=== PATIENT | female | born 1985 | race Caucasian/White ===

== ENCOUNTER 2019-01-11 08:19 | Inpatient (IN) | payer MEDICAID ==
[~2019-01-11] VITALS: Ht 165.1 cm; Wt 72.6 kg
[2019-01-11] VITALS (16 sets, daily range): BP systolic 104–133; BP diastolic 6–76
--- NOTE | 2019-01-11 08:25 | NUR ---
Arrived to unit in wheelchair accompanied by family. Pt c/o "water breaking and contractions. wt obtained and pt then ambulates to room 318. Gowned and to bed. Oriented to room, call light and surroundings. plan of care reviewed with pt and family at bedside.
[2019-01-11] MEDS ORDERED: PREN-37 PO (08:40)
--- NOTE | 2019-01-11 08:49 | NUR ---
Dr Nelson called and notified of pt arrival, srom at home this am, +nitrazine, contractions and sve. New orders for admission received.
[2019-01-11] MEDS ORDERED: D5 LR IV SOLUTION 1,000 ML IV SCH (08:51)
[2019-01-11] MEDS ORDERED: MINERAL OIL CONCENTRATE 99.9% 15 ML UDC TOP PRN (09:00)
[2019-01-11 09:26] LABS: BASOPHILS % (AUTO) 0 % (0-10); EOSINOPHILS # (AUTO) 0.1 10^3/uL (0.0-0.3); EOSINOPHILS % (AUTO) 1 % (0-10); HEMATOCRIT 32 % (35-52); LYMPHOCYTES # (AUTO) 1.5 X 10^3 (1.0-4.0); LYMPHOCYTES % (AUTO) 16 % (12-44); MEAN CORPUSCULAR HEMOGLOBIN 26 PG (25-34); MEAN CORPUSCULAR HGB CONC 32 G/DL (32-36); MEAN CORPUSCULAR VOLUME 81 FL (80-99); MEAN PLATELET VOLUME 11.1 FL (7.4-10.4); MONOCYTES # (AUTO) 0.7 X 10^3 (0.0-1.0); MONOCYTES % (AUTO) 8 % (0-12); NEUTROPHILS # (AUTO) 6.9 X 10^3 (1.8-7.8); NEUTROPHILS % (AUTO) 75 % (42-75); PLATELET COUNT 277 10^3/uL (130-400); RED CELL DISTRIBUTION WIDTH 14.3 % (10.0-14.5); WHITE BLOOD COUNT 9.2 10^3/uL (4.3-11.0)
--- NOTE | 2019-01-11 09:45 | NUR ---
Report to Gerard Valdez RN
--- NOTE | 2019-01-11 09:49 | NUR ---
called into pt's room, requesting pain medication. was called. update given on SVE. Fentanyl order received.
[2019-01-11] MEDS ORDERED: fentaNYL INJECTION 100 MCG/2 ML AMP ONE ×2 (09:53→10:23)
[2019-01-11] MEDS ORDERED: fentaNYL INJECTION 100 MCG/2 ML AMP IVP ONE (10:00)
[2019-01-11] MEDS ORDERED: OXYTOCIN/NORMAL SALINE 500 ML IV ONE (10:09)
[2019-01-11] MEDS ORDERED: SUFENTA 0.6MCG/ML BUPIVA 0.125 0 ML ONE (10:09)
--- NOTE | 2019-01-11 10:26 | NUR ---
+emesis noted. pt moaning with ctx's.
--- NOTE | 2019-01-11 11:16 | History & Physical-OB ---
OB - Chief Complaint & HPI Date/Time Date of Admission: Date of Admission: Jan 11, 2019 at 08:50 Date seen by a Provider: Jan 11, 2019 Time Seen by a Provider: 10:50 Chief Complaint/History OB-Reason for Admission/Chief: Rupture of Membranes Hx : 6 Hx Para: 5 Gestational Age in Weeks: 38 Gestational Age in Days: 3 Admission Nurse Assessment Rev: Yes Allergies and Home Medications Allergies Coded Allergies: No Known Drug Allergies (Unverified , 01/11/19) Home Medications Vit/Iron Fumarate/FA 1 Each Tablet, 1 EACH PO DAILY, (Reported) Patient Home Medication List Home Medication List Reviewed: Yes OB - History Hx of Present Care: Yes Ultrasounds: Normal mid trimester US Obstetrical Complications: None Medical Complications: None Patient Past Medical History healthy Social History/Family History Recent Infectious Disease Expo: No OB - Admission Exam Physical Exam HEENT: NCAT Heart: Rhythm Normal Lungs: Clear Abdomen: Gravid Extremities: Normal Reflexes: Normal Cervical Dilatation: 9cm Effacement: 100% Station: 0 Membranes: Ruptured Amniotic Fluid: Clear Heart Rate: 130's Accelerations: Accelerations Present Decelerations: No Decelerations Short Term Variability: Present Color Matcher Variability: Average (6-25) Contractions on Admission: < 5 Minutes Apart Labs Laboratory Tests Test 01/11/19 09:05 Range/Units White Blood Count 9.2 4.3-11.0 10^3/uL Red Blood Count 3.89 L 4.35-5.85 10^6/uL Hemoglobin 10.0 L 11.5-16.0 G/DL Hematocrit 32 L 35-52 % Mean Corpuscular Volume 81 80-99 FL Mean Corpuscular Hemoglobin 26 25-34 PG Mean Corpuscular Hemoglobin Concent 32 32-36 G/DL Red Cell Distribution Width 14.3 10.0-14.5 % Platelet Count 277 130-400 10^3/uL Mean Platelet Volume 11.1 H 7.4-10.4 FL Neutrophils (%) (Auto) 75 42-75 % Lymphocytes (%) (Auto) 16 12-44 % Monocytes (%) (Auto) 8 0-12 % Eosinophils (%) (Auto) 1 0-10 % Basophils (%) (Auto) 0 0-10 % Neutrophils # (Auto) 6.9 1.8-7.8 X 10^3 Lymphocytes # (Auto) 1.5 1.0-4.0 X 10^3 Monocytes # (Auto) 0.7 0.0-1.0 X 10^3 Eosinophils # (Auto) 0.1 0.0-0.3 10^3/uL Basophils # (Auto) 0.0 0.0-0.1 10^3/uL OB - Assessment/Plan/Diagnosis Assessment Assessment: active labor Admission Dx Normal labor Admission Status: Inpatient Order (span 2 midnights) Reason for Inpatient Admission: Labor at 38 3/7 wga Plan Plan: Expectant Management CIRILO JOHNSON MD Jan 11, 2019 11:16
--- NOTE | 2019-01-11 11:18 | OB Labor & Delivery Record ---
Vag Delivery Note Vag Delivery Note Date of Delivery: 01/11/19 Preoperative Diagnosis: Thuy Hurt is a (33 /Para 6 / 5,Gestational Age (wks)38with [3 days] Postoperative Diagnosis: Same Surgeon: CIRILO JOHNSON Tugboat Mate: [] Anesthesia: [epidural] Delivery Type: [] Findings: [] Viable [female] , apgars [8/9], weight [7 pounds 5 ounces] Lacerations: Intact placenta with 3 vessel cord. No nuchal cord, body cord or shoulder dystocia Estimated Blood Loss: [300] ml Complications: None Condition: Stable Description of Procedure: The patient is a 33 year old female who presented [in labor]. She was admitted and informed consent was obtained. Her labor course was remarkable for [nothing] She progressed to complete dilatation and began to push. She was then set up for delivery. The 's head was delivered atraumatically in the [OA] position. The shoulders and remainder of the infant's body were then delivered without difficulty. Upon delivery, the head was held below the level of the perineum and the mouth and nares were bulb suctioned. The cord was doubly clamped and cutafter 60 seconds on maternal abdomen. An intact placenta with 3-vessel cord delivered manually after cord avulsion and there was found to be minimal bleeding.~ Vigorous fundal massage was performed and the fundus was found to be firm. IV oxytocin was given. Examination of the vagina and perineum revealed no lacerations. Following the repair, sponge, instrument and needle counts were correct. Mom and baby were both in stable condition in the labor suite. Vitals - Labs Labs Laboratory Tests 01/11/19 09:05: White Blood Count 9.2, Red Blood Count 3.89L, Hemoglobin 10.0L, Hematocrit 32L, Mean Corpuscular Volume 81, Mean Corpuscular Hemoglobin 26, Mean Corpuscular Hemoglobin Concent 32, Red Cell Distribution Width 14.3, Platelet Count 277, Mean Platelet Volume 11.1H, Neutrophils (%) (Auto) 75, Lymphocytes (%) (Auto) 16, Monocytes (%) (Auto) 8, Eosinophils (%) (Auto) 1, Basophils (%) (Auto) 0, Neutrophils # (Auto) 6.9, Lymphocytes # (Auto) 1.5, Monocytes # (Auto) 0.7, Eosinophils # (Auto) 0.1, Basophils # (Auto) 0.0 CIRILO JOHNSON MD Jan 11, 2019 11:18
[2019-01-11] MEDS ORDERED: OXYTOCIN/NORMAL SALINE 500 ML IV SCH (11:25)
[2019-01-11] MEDS ORDERED: TETANUS,DIPTH,PERTUSS P/F (BOOSTRIX) 0.5 ML VIAL IM ONE (11:30)
[2019-01-11] MEDS ORDERED: BENZOCAINE/MENTHOL (DERMOPLAST) 56 ML CAN TP PRN (11:30)
[2019-01-11] MEDS ORDERED: MEASLES,MUMPS,RUBELLA 1 EA INJ SQ ONE (11:30)
[2019-01-11] MEDS ORDERED: WITCH HAZEL(TUCKS) 40 EA JAR TOP PRN (11:30)
[2019-01-11] MEDS ORDERED: LACTATED RINGERS 1,000 ML IV ONE ×2 (11:44)
[2019-01-11] MEDS ORDERED: EPIDURAL (SUFENTA 0.6MCG/ML BUPIVA 0.125%) 100 ML BAG EPI PRN (11:45)
[2019-01-11] MEDS ORDERED: ONDANSETRON 4 MG/2 ML (SDV) Z0FRAN IV PRN (11:45)
[2019-01-11] MEDS ORDERED: NALOXONE 0.4 MG/ML 1 ML (NARCAN) VIAL IV PRN (11:45)
[2019-01-11] MEDS ORDERED: LIDOCAINE PF 2% 5 ML (XYLOCAINE) VIAL ONE (11:47)
[2019-01-11] MEDS ORDERED: BUPIVACAINE 0.25% 30 ML (SENSORCAINE) VIAL ONE (11:47)
--- OUTSIDE RECORDS SUMMARY | 2019-01-11 12:04 | XMS REPORT | Continuity of Care Document ---
Author Organization Unknown Address Unknown Allergies There is no data. Medications There is no data. Problems There is no data. Procedures There is no data. Results Test Result Range GLUCOSE KARON 1 HOUR - 10/28/18 12:23 GLUCOSE, POSTPRANDIAL/ 1 HOUR 157 mg/dL See Note: CBC - 10/28/18 12:23 WHITE BLOOD CELL COUNT 9.5 Thousand/uL 3.8-10.8 RED BLOOD CELL COUNT 3.38 Million/uL 3.80-5.10 HEMOGLOBIN 9.6 g/dL 11.7-15.5 HEMATOCRIT 30.0 % 35.0-45.0 MCV 88.8 fL 80.0-100.0 MCH 28.4 pg 27.0-33.0 MCHC 32.0 g/dL 32.0-36.0 RDW 11.8 % 11.0-15.0 PLATELET COUNT 294 Thousand/uL 140-400 MPV 10.2 fL 7.5-12.5 ABSOLUTE NEUTROPHILS 7163 cells/uL 5953-7189 ABSOLUTE LYMPHOCYTES 1777 cells/uL 850-3900 ABSOLUTE MONOCYTES 494 cells/uL 200-950 ABSOLUTE EOSINOPHILS 48 cells/uL 15-500 ABSOLUTE BASOPHILS 19 cells/uL 0-200 NEUTROPHILS 75.4 % NRG LYMPHOCYTES 18.7 % NRG MONOCYTES 5.2 % NRG EOSINOPHILS 0.5 % NRG BASOPHILS 0.2 % NRG GLUCOSE KARON 3 HOUR - 11/02/18 16:16 TIME 1 FASTING NRG SPECIMEN 1 61 mg/dL 65-99 TIME 2 1 HOUR NRG SPECIMEN 2 153 mg/dL NRG TIME 3 2 HOURS NRG SPECIMEN 3 150 mg/dL NRG TIME 4 3 HOURS NRG SPECIMEN 4 78 mg/dL NRG COMMENT NRG CULTURE, GROUP B STREP WITH SUSCEPTIBILITY - 12/23/18 12:06 CULTURE, GROUP B STREP WITH SUSCEPTIBILITY SEE NOTE NRG Encounters ACCT No. Visit Date/Time Discharge Status Pt. Type Provider Facility Loc./Unit Complaint [id number] 01/06/2019 11:15:00 01/06/2019 23:59:59 [facility] [id number] 12/23/2018 11:15:00 Document Registration [id number] 11/02/2018 13:20:00 Document Registration [id number] 10/28/2018 11:15:00 Document Registration
[2019-01-11] MEDS ORDERED: CATHETER FLUSH 10 ML SYR IV SCH ×2 (14:00)
--- NOTE | 2019-01-11 14:25 | NUR ---
FFU/1. daria-care offered. v-pad and panties in place. pt transferred to room 312 via w/c with this RN and family members @ side. familiarized with room surroundings. call light within reach. scheduled Motrin given, see eMar for further.
[2019-01-11] MEDS: IBUPROFEN 600 MG (MOTRIN) TAB PO SCH ×2 (14:33→21:05)
[2019-01-11] MEDS: DOCUSATE SODIUM 100 MG (COLACE) CAP PO SCH (21:05)
[2019-01-12 00:24] VITALS: BP 122/56
[2019-01-12 05:38] LABS: BASOPHILS % (AUTO) 0 % (0-10); EOSINOPHILS # (AUTO) 0.1 10^3/uL (0.0-0.3); EOSINOPHILS % (AUTO) 1 % (0-10); HEMATOCRIT 29 % (35-52); HEMOGLOBIN 9.1 G/DL (11.5-16.0); LYMPHOCYTES % (AUTO) 18 % (12-44); MEAN CORPUSCULAR HEMOGLOBIN 26 PG (25-34); MEAN CORPUSCULAR HGB CONC 32 G/DL (32-36); MEAN CORPUSCULAR VOLUME 82 FL (80-99); MEAN PLATELET VOLUME 10.9 FL (7.4-10.4); MONOCYTES # (AUTO) 0.9 X 10^3 (0.0-1.0); MONOCYTES % (AUTO) 8 % (0-12); NEUTROPHILS # (AUTO) 8.2 X 10^3 (1.8-7.8); NEUTROPHILS % (AUTO) 73 % (42-75); PLATELET COUNT 243 10^3/uL (130-400); RED CELL DISTRIBUTION WIDTH 14.1 % (10.0-14.5); WHITE BLOOD COUNT 11.3 10^3/uL (4.3-11.0)
[2019-01-12 05:48] VITALS: BP 116/58
[2019-01-12 08:20] VITALS: BP 122/58
[2019-01-12] MEDS: DOCUSATE SODIUM 100 MG (COLACE) CAP PO SCH (08:24)
--- NOTE | 2019-01-12 10:09 | Anesthesia-Regional Post-Op ---
Regional Patient Condition Mental Status: Alert, Oriented x3 Circulation: Same as Pre-Op Headache: Absent Sensation: Full Recovery Motor Block: Absent Post Op Complications Complications None Follow Up Care/Instructions Patient Instructions None needed. Anesthesia/Patient Condition Patient is doing well, no complaints, stable vital signs, no apparent adverse anesthesia problems. No complications reported per nursing. ALEX ALFONSO CRNA Jan 12, 2019 10:09
[2019-01-12] MEDS ORDERED: TETANUS,DIPTH,PERTUSS P/F (BOOSTRIX) 0.5 ML VIAL IM ONE (11:44)
[2019-01-12] MEDS: IBUPROFEN 600 MG (MOTRIN) TAB PO SCH (11:57)
[2019-01-12] MEDS ORDERED: IBUP-844 PO (12:45)
--- NOTE | 2019-01-12 12:48 | Discharge Instructions ---
Discharge Inst-Women's Serv Depart Medications New, Converted or Re-Newed RX: Call to Patients Pharmacy New Medications: Ibuprofen (Ibu) 600 Mg Tablet 600 MG PO Q6HR PRN for PAIN-MODERATE, #60 TAB 0 Refills Continued Medications: Vit/Iron Fumarate/FA ( Tablet) 1 Each Tablet 1 EACH PO DAILY, TAB Follow Up/Instructions Goal/Follow Up: Follow up with Dr. Johnson in 6 weeks for visit. Activity Activity: Activity as Tolerated (avoid strenuous activity x 6 weeks) Nothing Inside Vagina: No Douching, No [place], No Tampons Diet Discharge Diet: No Restrictions Symptoms to Report to : Swelling Increased, Fever Over 101 Degrees F, Pain/Pressure in Chest, Vaginal Bleeding Increase, Cramps in Feet or Legs, Vaginal Discharge Foul, Dizziness/Fainting, Shortness of Breath For Any Problems or Questions: Contact Your Physician Copies To 1: CIRILO JOHNSON MD, BETHANY N MD Jan 12, 2019 12:48
--- NOTE | 2019-01-12 12:49 | Discharge Summary ---
Diagnosis/Chief Complaint Date of Admission Jan 11, 2019 at 08:50 Date of Discharge Jan 12, 2019 Admission Diagnosis Admission Diagnosis Active labor Full term intrauterine Discharge Diagnosis s/p spontaneous vaginal delivery anemia asymptomatic Chief Complaint/HPI Chief Complaint/HPI 33 yo G6 now P6 presented to Labor and Delivery with spontaneous rupture of membranes and term. Discharge Summary-Simple/Stand Discharge Physical Examination Allergies: Coded Allergies: No Known Drug Allergies (Unverified , 01/11/19) Vitals & I&Os Vital Sign - Last 12Hours Date Time Temp Pulse Resp B/P (MAP) Pulse Ox O2 Delivery O2 Flow Rate FiO2 01/12/19 08:20 98.4 59 16 122/58 (79) 99 Room Air General Appearance: Alert, No Acute Distress Respiratory: Clear to Auscultation, Normal Air Movement Cardiovascular: Regular Rate, No Murmurs Abdominal: Other (fundus firm below umbilicus) Neuro: Normal Speech Psych/Mental Status: Mental Status NL Hospital Course See final discharge diagnosis. Labs Laboratory Tests Test 01/11/19 09:05 01/12/19 05:15 Range/Units White Blood Count 9.2 11.3 H 4.3-11.0 10^3/uL Red Blood Count 3.89 L 3.53 L 4.35-5.85 10^6/uL Hemoglobin 10.0 L 9.1 L 11.5-16.0 G/DL Hematocrit 32 L 29 L 35-52 % Mean Corpuscular Volume 81 82 80-99 FL Mean Corpuscular Hemoglobin 26 26 25-34 PG Mean Corpuscular Hemoglobin Concent 32 32 32-36 G/DL Red Cell Distribution Width 14.3 14.1 10.0-14.5 % Platelet Count 277 243 130-400 10^3/uL Mean Platelet Volume 11.1 H 10.9 H 7.4-10.4 FL Neutrophils (%) (Auto) 75 73 42-75 % Lymphocytes (%) (Auto) 16 18 12-44 % Monocytes (%) (Auto) 8 8 0-12 % Eosinophils (%) (Auto) 1 1 0-10 % Basophils (%) (Auto) 0 0 0-10 % Neutrophils # (Auto) 6.9 8.2 H 1.8-7.8 X 10^3 Lymphocytes # (Auto) 1.5 2.0 1.0-4.0 X 10^3 Monocytes # (Auto) 0.7 0.9 0.0-1.0 X 10^3 Eosinophils # (Auto) 0.1 0.1 0.0-0.3 10^3/uL Basophils # (Auto) 0.0 0.0 0.0-0.1 10^3/uL Discharge Instructions to patient/family Please see electronic discharge instructions given to patient. Discharge Medications Reviewed and agree with Discharge Medication list on patient's Discharge Instruc tion sheet Clinical Quality Measures DVT/VTE Risk/Contraindication: Risk Factor Score Per Nursin RFS Level Per Nursing on Admit: 1=Low/No VTE PPX BREANNA BLACKWELL MD Jan 12, 2019 12:49
--- NOTE | 2019-01-12 13:55 | NUR ---
Discharge to exit - pt ambulatory. Verbalized understanding of discharge instructions. Accompanied by staff and S.O.
== END 2019-01-12 13:55 | disposition home or self-care (01) | DRG 807 ==
LOC: WSo 08:19 → LDRP 08:26 → WSo 08:50 → LDRP 08:50
PROVIDERS: ADMIT Family Medicine; ATTEND Family Medicine
PROC: 10E0XZZ Delivery of Products of Conception, External Approach (ICD-10-PCS; principal; 2019-01-11)
DX: O99.03 Anemia complicating the puerperium (principal); D64.9 Anemia, unspecified; Z3A.38 38 weeks gestation of pregnancy; Z23 Encounter for immunization; Z37.0 Single live birth
CPT/HCPCS: 36415; 85025; 86850; 86900; 86901; 90715; 99212

== ENCOUNTER 2019-03-05 13:32 | Emergency (ER) | payer MEDICAID ==
[~2019-03-05] VITALS: Ht 165.1 cm; Wt 59.9 kg
[~2019-03-05 13:32] MED LIST: IBUP-844 PO; PREN-37 PO
[2019-03-05 13:51] LABS: CLARITY,URINE CLOUDY; COLOR,URINE YELLOW; GLUCOSE, URINE (UA) NEGATIVE (NEGATIVE); KETONES,URINE TRACE (NEGATIVE); NITRITE,URINE NEGATIVE (NEGATIVE); PROTEIN,URINE NEGATIVE (NEGATIVE)
[2019-03-05] MEDS ORDERED: NS IV 1000 ML 1,000 ML IV SCH (13:51)
[2019-03-05 13:52] LABS: BACTERIA,URINE LARGE /HPF; BILIRUBIN,URINE 1+ (NEGATIVE); LEUKOCYTE ESTERASE ,URINE 3+ (NEGATIVE); SQUAMOUS EPITHELIAL CELL,UR >50 /HPF; UROBILINOGEN,URINE >=8.0 MG/DL (NORMAL); WBC,URINE >100 /HPF
--- NOTE | 2019-03-05 13:57 | ED Abdominal Pain ---
General Stated Complaint: ABD PAIN Source of Information: Patient Exam Limitations: No Limitations History of Present Illness Date Seen by Provider: Mar 05, 2019 Time Seen by Provider: 13:42 Initial Comments Patient presents to ER by private conveyance with chief complaint of going on the second day of lower midline abdominal pain. She is 6 weeks and had a tubal ligation by Dr. Kearney in [place], [place]. Normal she follows with Dr. Johnson in 2 weeks ago she had a follow-up appointment for her surgery with Dr. Johnson and everything was fine with the incisions at that time. She does not remember any inciting trauma she works as a auto body shop manager and did not remember lifting anything or having any recent falls car wreck or fights. She says yesterday she got done eating with her son and began to experience some pain especially on trying to pass a bowel movement. She does not have dysuria or burning but she does say it hurts when she bears down. She does have chronic constipation were usually goes up to 2-3 days before a bowel movement. She says she's only had 2 bowel movements in the 2 weeks since her surgery which is not necessarily unusual for her. She has not taken any cathartics. She says she felt flush in her face with chills yesterday evening but did not measure her temperature. She's having no chest pain shortness of breath cough. No other abdominal surgeries. No vaginal bleeding or discharge. Her last period concluded about one week ago. She had nausea for a short while yesterday but no vomiting and no nausea now. Allergies and Home Medications Allergies Coded Allergies: No Known Drug Allergies (Unverified , 01/11/19) Home Medications Ibuprofen 600 Mg Tablet, 600 MG PO Q6HR PRN for PAIN-MODERATE Prescribed by: BREANNA BLACKWELL on 01/12/19 1245 Vit/Iron Fumarate/FA 1 Each Tablet, 1 EACH PO DAILY, (Reported) Patient Home Medication List Home Medication List Reviewed: Yes Review of Systems Review of Systems Constitutional: No chills, No diaphoresis EENTM: No Blurred Vision, No Double Vision Respiratory: Denies Cough, Denies Shortness of Air Cardiovascular: Denies Chest Pain, Denies Edema Gastrointestinal: See HPI, Abdominal Pain, Constipated; Denies Diarrhea; Nausea; Denies Vomiting Genitourinary: Denies Burning, Denies Discharge Musculoskeletal: No back pain, No joint pain Psychiatric/Neurological: Denies Anxiety, Denies Depressed Past Zsfixhb-Gshhbr-Chavna Hx Patient Social History Alcohol Use: Past History Recreational Drug Use: No Smoking Status: Never a Smoker Recent Hopitalizations: No Seasonal Allergies Seasonal Allergies: No Past Medical History Surgeries: No Respiratory: No Cardiac: No Neurological: No Genitourinary: No Gastrointestinal: No Musculoskeletal: No Endocrine: No HEENT: No Cancer: No Psychosocial: No Integumentary: No Blood Disorders: No Family Medical History FH: cirrhosis (MGF) Parkinson's disease (MGM) Physical Exam Vital Signs Vital Signs - First Documented 03/05/19 13:40 Temp 97.4 Pulse 95 Resp 16 B/P (MAP) 127/83 (98) Pulse Ox 100 O2 Delivery Room Air Capillary Refill : Height/Weight/BMI Height: 5'5.00" Weight: 160lbs. 0.0oz. 72.300294gu; 26.6 BMI Method: General Appearance: WD/WN, no apparent distress HEENT: PERRL/EOMI, normal ENT inspection, TMs normal Neck: non-tender, full range of motion Respiratory: lungs clear, normal breath sounds, no respiratory distress, no accessory muscle use Cardiovascular: normal peripheral pulses, regular rate, rhythm, no edema Peripheral Pulses: 2+ Radial Pulses (R), 2+ Radial Pulses (L) Gastrointestinal: normal bowel sounds (quiescent), soft, no organomegaly, tenderness (umbilicus and bilateral lower quadrants) Extremities: normal range of motion, non-tender, normal capillary refill Neurologic/Psychiatric: alert, normal mood/affect, oriented x 3 Skin: normal color, warm/dry, other (to previous surgical laparoscopic scars are clean and dry well approximated nonerythematous without any tenderness or evidence of fluctuance or fluid collection.) Progress/Results/Core Measures Results/Orders Lab Results Laboratory Tests Test 03/05/19 13:40 03/05/19 13:55 Range/Units Urine Color YELLOW Urine Clarity CLOUDY Urine pH 6.0 5-9 Urine Specific Powell 1.020 1.016-1.022 Urine Protein NEGATIVE NEGATIVE Urine Glucose (UA) NEGATIVE NEGATIVE Urine Ketones TRACE H NEGATIVE Urine Nitrite NEGATIVE NEGATIVE Urine Bilirubin 1+ H NEGATIVE Urine Urobilinogen >=8.0 NORMAL MG/DL Urine Leukocyte Esterase 3+ H NEGATIVE Urine RBC (Auto) NEGATIVE NEGATIVE Urine RBC NONE /HPF Urine WBC >100 H /HPF Urine Squamous Epithelial Cells >50 H /HPF Urine Crystals NONE /LPF Urine Bacteria LARGE H /HPF Urine Casts NONE /LPF Urine Mucus NEGATIVE /LPF Urine Culture Indicated YES Urine Test NEGATIVE NEGATIVE White Blood Count 12.4 H 4.3-11.0 10^3/uL Red Blood Count 3.94 L 4.35-5.85 10^6/uL Hemoglobin 10.3 L 11.5-16.0 G/DL Hematocrit 33 L 35-52 % Mean Corpuscular Volume 93 80-99 FL Mean Corpuscular Hemoglobin 26 25-34 PG Mean Corpuscular Hemoglobin Concent 32 32-36 G/DL Red Cell Distribution Width 17.9 H 10.0-14.5 % Platelet Count 429 H 130-400 10^3/uL Mean Platelet Volume 8.9 7.4-10.4 FL Neutrophils (%) (Auto) 79 H 42-75 % Lymphocytes (%) (Auto) 13 12-44 % Monocytes (%) (Auto) 6 0-12 % Eosinophils (%) (Auto) 1 0-10 % Basophils (%) (Auto) 0 0-10 % Neutrophils # (Auto) 9.9 H 1.8-7.8 X 10^3 Lymphocytes # (Auto) 1.7 1.0-4.0 X 10^3 Monocytes # (Auto) 0.8 0.0-1.0 X 10^3 Eosinophils # (Auto) 0.1 0.0-0.3 10^3/uL Basophils # (Auto) 0.0 0.0-0.1 10^3/uL Sodium Level 140 135-145 MMOL/L Potassium Level 3.3 L 3.6-5.0 MMOL/L Chloride Level 101 98-107 MMOL/L Carbon Dioxide Level 26 21-32 MMOL/L Anion Gap 13 5-14 MMOL/L Blood Urea Nitrogen 9 7-18 MG/DL Creatinine 1.10 0.60-1.30 MG/DL Estimat Glomerular Filtration Rate 57 BUN/Creatinine Ratio 8 Glucose Level 108 H 70-105 MG/DL Calcium Level 9.3 8.5-10.1 MG/DL Corrected Calcium 9.1 8.5-10.1 MG/DL Total Bilirubin 1.0 0.1-1.0 MG/DL Aspartate Amino Transf (AST/SGOT) 36 H 5-34 U/L Alanine Aminotransferase (ALT/SGPT) 44 0-55 U/L Alkaline Phosphatase 174 H 40-136 U/L Total Protein 7.1 6.4-8.2 GM/DL Albumin 4.2 3.2-4.5 GM/DL Lipase 19 8-78 U/L My Orders Orders - KAMRONGREGG Karo Ua Culture If Indicated (03/05/19 13:33) Hcg,Qualitative Urine (03/05/19 13:33) Ketorolac Injection (Toradol Injection) (03/05/19 14:00) Urine Bedside (03/05/19 13:49) Cbc With Automated Diff (03/05/19 13:49) Lipase (03/05/19 13:49) Comprehensive Metabolic Panel (03/05/19 13:49) Ed Iv/Invasive Line Start (03/05/19 13:51) Ns Iv 1000 Ml (Sodium Chloride 0.9%) (03/05/19 13:51) Urine Culture (03/05/19 13:40) Abdomen Flat & Upright/Decub (03/05/19 14:20) Medications Given in ED Current Medications Medications Dose Ordered Sig/Dominick Route Start Time Stop Time Status Last Admin Dose Admin Ketorolac Tromethamine 30 mg ONCE ONCE IVP 03/05/19 14:00 03/05/19 14:01 DC 03/05/19 14:40 30 MG Vital Signs/I&O 03/05/19 13:40 Temp 97.4 Pulse 95 Resp 16 B/P (MAP) 127/83 (98) Pulse Ox 100 O2 Delivery Room Air Progress Progress Note #1: Time: 13:57 Progress Note Mildly tender but otherwise benign abdomen with normal vital signs. Plan some regular labs urinalysis and hCG to rule out possibility of an ectopic . Bedside is negative. Toradol for pain. She's not having any nausea. We'll give her a liter of fluids in anticipation that we may scan her belly however if her pain is fairly resolved and her labs are benign then we will suggest cleaning her colon out with MiraLAX and outpatient follow-up with Dr. Johnson. Progress Note #2: Time: 14:24 Progress Note Non-convincing white count.We did a shared decision making process with the patient to either pursue a CT scan now or to get a plain film x-ray and if it looks like she has some stool in her colon then go home and clean out and follow up with Omar tomorrow or Wednesday. She would prefer the latter. Awaiting KUB and the rest of her labs. Progress Note #3: Time: 15:05 Progress Note Pain after Toradol largely unchanged. Urinalysis appears to be contaminated. Plan to follow the culture. Diagnostic Imaging Diagonstic Imaging: Xray Plain Films/CT/US/NM/MRI: abdomen (KUB) Comments Moderate fecal load in the colon without obstructive appearance. Reviewed: Reviewed by Me Departure Impression Primary Impression: Abdominal pain Qualified Codes: R10.30 - Lower abdominal pain, unspecified Additional Impression: Obstipation Disposition: HOME, SELF-CARE Condition: Stable Departure-Patient Inst. Decision time for Depature: 15:39 Referrals: CIRILO JOHNSON MD (PCP/Family) Primary Care Physician Patient Instructions: Constipation, Adult (DC) Add. Discharge Instructions: Start taking MiraLAX 3-4 times a day 1 capful in 6-8 ounces of fluids of your choice. Drink plenty fluids. animal care supervisor a fleets enema once or twice daily for the next 2-3 days until you feel your adequately cleaned out. If your pain is out of control or if you experience significant nausea vomiting or a fever especially above 102.5 then you should return to the ER for further evaluation. Otherwise plan to follow up with primary care outpatient. Scripts Na Hollie,M-B/Na Phos,Di-Ba (Fleet Enema) 133 Ml Enema 133 ML RC DAILY PRN for 3 Days, #3 EA 0 Refills Prov: GREGG LUNDY 03/05/19 Polyethylene Glycol 3350 (Miralax) 17 Gm Powd.pack 17 GM PO QID for 3 Days, #1 EACH 0 Refills Prov: GREGG LUNDY 03/05/19 Work/School Note: Work Release Form Date Seen in the Emergency Department: Mar 05, 2019 Return to Work: Mar 07, 2019 Restrictions: No Restrictions GREGG LUNDY Mar 05, 2019 13:57
[2019-03-05] MEDS ORDERED: KETOROLAC 30 MG/ML VIAL IVP ONE (14:00)
[2019-03-05 14:10] LABS: BASOPHILS % (AUTO) 0 % (0-10); EOSINOPHILS # (AUTO) 0.1 10^3/uL (0.0-0.3); EOSINOPHILS % (AUTO) 1 % (0-10); HEMATOCRIT 33 % (35-52); HEMOGLOBIN 10.3 G/DL (11.5-16.0); LYMPHOCYTES # (AUTO) 1.7 X 10^3 (1.0-4.0); LYMPHOCYTES % (AUTO) 13 % (12-44); MEAN CORPUSCULAR HEMOGLOBIN 26 PG (25-34); MEAN CORPUSCULAR HGB CONC 32 G/DL (32-36); MEAN CORPUSCULAR VOLUME 93 FL (80-99); MEAN PLATELET VOLUME 8.9 FL (7.4-10.4); MONOCYTES # (AUTO) 0.8 X 10^3 (0.0-1.0); MONOCYTES % (AUTO) 6 % (0-12); NEUTROPHILS # (AUTO) 9.9 X 10^3 (1.8-7.8); NEUTROPHILS % (AUTO) 79 % (42-75); PLATELET COUNT 429 10^3/uL (130-400); RED CELL DISTRIBUTION WIDTH 17.9 % (10.0-14.5); WHITE BLOOD COUNT 12.4 10^3/uL (4.3-11.0)
[2019-03-05 14:35] LABS: CALCIUM 9.3 MG/DL (8.5-10.1); CREATININE SERUM 1.1 MG/DL (0.60-1.30); POTASSIUM 3.3 MMOL/L (3.6-5.0)
[2019-03-05 14:36] LABS: ALBUMIN 4.2 GM/DL (3.2-4.5); TOTAL PROTEIN 7.1 GM/DL (6.4-8.2)
[2019-03-05] MEDS ORDERED: NA P133E22 RC (15:41)
[2019-03-05] MEDS ORDERED: POLY17PO6 PO (15:41)
[2019-03-05 15:58] VITALS: BP 111/66
--- NOTE | 2019-03-05 16:15 | Diagnostic Imaging Report ---
INDICATION: Left lower quadrant pain. EXAMINATION: Flat and upright decubitus views of the abdomen were obtained. FINDINGS: There is a mildly elevated colonic fecal load of the transverse through sigmoid colon. Mild constipation distally could not be excluded but no evidence for impaction or mechanical obstruction. No small bowel dilatation. No radiographic mass effect is found. The lung bases are clear. IMPRESSION: Borderline mid to distal colonic constipation without impaction or obstruction. No other potential acute abnormality. Dictated by: Dictated on workstation # [id number]
== END 2019-03-05 15:58 | disposition home or self-care (01) ==
LOC: EDUNIT# 13:32 → ER FS 13:33
DX: K59.00 Constipation, unspecified (principal)
CPT/HCPCS: 36415; 74019; 80053; 81000; 83690; 84703; 85025; 87088